=== PATIENT | female | born 1995 | race African-American/Black ===

== ENCOUNTER 2017-02-01 20:45 | Emergency (ER) | payer MEDICAID ==
[~2017-02-01] VITALS: Ht 167.6 cm; Wt 106.0 kg
[2017-02-02 02:18] LABS: BASOPHILS % 0.7 % (0.0-2.0); EOSINOPHILS % 0.9 % (0.0-5.0); HEMATOCRIT. 37.4 % (36.0-48.0); HEMOGLOBIN. 12.6 g/dL (12.0-16.0); LYMPHOCYTES % 34.4 % (20.0-50.0); MEAN CORPUSCULAR HEMOGLOBIN 27.1 pg (28.0-32.0); MEAN CORPUSCULAR VOLUME 80.8 fL (81.0-99.0); MEAN PLATELET VOLUME 7.4 fl (7.4-10.4); MONOCYTES % 6.6 % (2.0-8.0); NEUTROPHILS % 57.4 % (40.0-76.0); PLATELET 332 x1000/uL (130-400); RED BLOOD CELL COUNT 4.63 mill/uL (4.2-5.4); RED CELL DISTRIBUTION WIDTH 16.1 % (11.6-14.6)
[2017-02-02 02:23] LABS: CHLORIDE 106 mEq/L (98-107)
[2017-02-02 02:32] LABS: CARBON DIOXIDE 27 mEq/L (21-32)
[2017-02-02 02:46] LABS: GLUCOSE URINE NEGATIVE (NEGATIVE); KETONES URINE NEGATIVE (NEGATIVE); LEUKOCYTE ESTERASE URINE 1+ (NEGATIVE); NITRITE URINE NEGATIVE (NEGATIVE); OCCULT BLOOD URINE 3+ (NEGATIVE); PROTEIN URINE 1+ (NEGATIVE); SPECIFIC GRAVITY URINE 1.017 (1.005-1.030); UROBILINOGEN URINE 0.2 E.U./dL (0.2-1.0)
[2017-02-02 02:59] LABS: *AMPHETAMINES SCREEN URINE NEGATIVE (NEGATIVE); *BARBITURATES SCREEN URINE NEGATIVE (NEGATIVE); *BENZODIAZEPINES SCREEN URINE NEGATIVE (NEGATIVE); CANNABINOID URINE SCREEN NEGATIVE (NEGATIVE); METHADONE URINE SCREEN NEGATIVE (NEGATIVE); OPIATES URINE SCREEN NEGATIVE (NEGATIVE); PHENCYCLIDINE URINE SCREEN NEGATIVE (NEGATIVE)
[2017-02-02 03:04] LABS: *COCAINE SCREEN URINE NEGATIVE (NEGATIVE)
[2017-02-02 03:10] LABS: CLARITY URINE CLOUDY (CLEAR); COLOR URINE AMBER (YELLOW)
[2017-02-02] MEDS ORDERED: CEFTRIAXONE SODIUM 250 MG/VIAL IM ONE (04:15)
[2017-02-02] MEDS ORDERED: LIDOCAINE HCL 1% 20ML VIAL (Pyxis) INJ MC ONE (04:15)
[2017-02-02 04:51] VITALS: BP 114/81
== END 2017-02-02 04:52 | disposition home or self-care (01) ==
LOC: ER 21:45
DX: N39.0 Urinary tract infection, site not specified (principal)
CPT/HCPCS: 36415; 80053; 80305; 81001; 81025; 83690; 85025; 96372; 99284; J0696; J3490